=== PATIENT | female | born 1935 | race Caucasian/White ===

== ENCOUNTER 2020-08-26 13:27 | Observation (INO) ==
[2020-08-26] MEDS ORDERED: Ipratropium/Albuterol Neb 3 ML ONE (13:37)
[2020-08-26] MEDS ORDERED: Isovue-370 500 ML BOTTLE IVP ONE (13:40)
[2020-08-26] MEDS ORDERED: Ipratropium/Albuterol Neb 3 ML IH ONE (13:40)
[2020-08-26] MEDS ORDERED: 0.9 % Sodium Chloride 1,000 ML IVC ONE (13:40)
[2020-08-26] MEDS ORDERED: cefTRIAXone 1,000 MG in Water for inj. (sterile) 10 ML IVP ONE (13:42)
[2020-08-26 14:01] LABS: Basophils % 0.1 %; Hematocrit 36.2 % (35.3-44.9); Immature Granulocytes % 0.7 % (0-4); Lymphocytes # 0.7 K/mcL (0.6-4.6); Lymphocytes % 6.4 %; Mean Corpuscular HGB Conc 33.1 g/dL (31.6-35.5); Mean Corpuscular Hemoglobin 30.8 pg (28.0-33.3); Mean Corpuscular Volume 92.8 fL (83.0-100.0); Mean Platelet Volume 9.4 fL (9.4-12.4); Monocytes # 0.6 K/mcL (0.0-1.3); Monocytes % 5.4 %; Neutrophils # 9.2 K/mcL (1.6-8.9); Platelet Count 335 K/mcL (140-400); Red Cell Distribution Width 14.1 % (11.5-14.5); Segmented Neutrophils % 87.4 %; White Blood Count 10.6 K/mcL (4.3-11.1)
[2020-08-26 14:10] LABS: INR 1.1; Prothrombin Time 13.1 Seconds (9.4-12.1)
[2020-08-26] MEDS ORDERED: Azithromycin 500 MG in 0.9 % Sodium Chloride 250 ML IVPB ONE (14:11)
[2020-08-26 14:13] LABS: Activated Partial Thrombo Time 28.9 Seconds (26.0-36.0)
[2020-08-26 14:22] LABS: Troponin I 0.04 ng/mL (< 0.04)
[2020-08-26] MEDS ORDERED: Aspirin 81 MG TAB.CHEW PO ONE (14:25)
[2020-08-26 14:36] LABS: Calcium 8.4 mg/dL (8.6-10.3); Potassium 4.2 mEq/L (3.5-5.1)
[2020-08-26 15:45] LABS: Adenovirus Not Detected (Not Detect); Coronavirus 229E Not Detected (Not Detect); Coronavirus HKU1 Not Detected (Not Detect); Coronavirus NL63 Not Detected (Not Detect); Coronavirus OC43 Not Detected (Not Detect)
[2020-08-26 15:49] LABS: Bordetella Pertussis Not Detected (Not Detect); Chlamydophila pneumoniae Not Detected (Not Detect); Human Metapneumovirus Not Detected (Not Detect); Human Rhinovirus/Enterovirus Not Detected (Not Detect); Influenza A Subtype 2009 H1 Not Detected (Not Detect); Influenza B Not Detected (Not Detect); Mycoplasma pneumoniae Not Detected (Not Detect); Parainfluenza Virus 1 Not Detected (Not Detect); Parainfluenza Virus 2 Not Detected (Not Detect); Parainfluenza Virus 3 Not Detected (Not Detect); Parainfluenza Virus 4 Not Detected (Not Detect); Respiratory Syncytial Virus Not Detected (Not Detect); SARS-CoV-2 DETECTED (Not Detect)
[2020-08-26 16:51] LABS: Albumin 3.7 g/dL (3.5-5.7); Albumin/Globulin Ratio 1.2 (1.1-2.2); Bilirubin,Direct 0.1 mg/dL (0.0-0.2); Bilirubin,Indirect 0.5 mg/dL (0.0-1.0); Bilirubin,Total 0.6 mg/dL (0.3-1.0); Globulin 3.2 g/dL (2.4-3.5); Total Protein 6.9 g/dL (6.4-8.9)
[2020-08-26] MEDS ORDERED: Naloxone 0.4 MG/ML INJ IVP PRN (17:33)
[2020-08-26] MEDS ORDERED: Ondansetron 4 MG/2 ML VIAL IVP PRN (17:33)
[2020-08-26] MEDS ORDERED: *HR* LORazepam 2 MG/ML VIAL IVP PRN (17:34)
[2020-08-26 22:57] VITALS: BP 116/73
[2020-08-27] MEDS: Morphine Sulfate 2 MG/ML SYRINGE IVP PRN ×2 (08:16→15:07)
== END 2020-08-27 18:50 | disposition hospice, home (50) ==
LOC: SUATTDRO → 2NENU 13:27 → EMEROOARM 13:27 → 2NENU 22:00
PROVIDERS: ADMIT Internal Medicine; ATTEND Internal Medicine